=== PATIENT | female | born 1955 | race Hispanic/Latino ===

== ENCOUNTER 2021-02-02 13:03 | Inpatient (IN) | payer MEDICARE ==
[~2021-02-02] VITALS: Ht 157.5 cm; Wt 63.6 kg
[2021-02-02 13:24] LABS: BASOPHILS % (AUTO) 1.1 % (0.0-5.0); EOSINOPHILS % (AUTO) 4.3 % (0.0-8.0); HEMATOCRIT 28.4 % (36-48); MEAN CORPUSCULAR HEMOGLOBIN 28.4 pg (27.0-33.0); MEAN CORPUSCULAR HGB CONC 33.5 g/dL (32.0-36.0); MONOCYTES % (AUTO) 8.2 % (3.0-13.0); NEUTROPHILS % (AUTO) 68.6 % (40.0-77.0); PLATELET COUNT (AUTO) 112 K/uL (130-400); RED BLOOD CELL COUNT(AUTO) 3.34 MIL/uL (4.00-5.50); RED CELL DISTRIBUTION WIDTH 12.8 % (11.0-15.5); WHITE BLOOD COUNT (AUTO) 7.4 K/uL (4.8-10.8)
[2021-02-02 13:32] LABS: INR 1.07 (0.85-1.15); PROTHROMBIN TIME 11.6 SEC (9.6-11.6)
[2021-02-02 13:43] LABS: ALBUMIN 3.5 g/dL (3.5-5.0); BILIRUBIN,TOTAL 0.5 mg/dL (0.2-1.0); CREATININE 1.4 mg/dL (0.5-1.5); TOTAL PROTEIN, SERUM 7.1 g/dL (6.0-8.3)
[2021-02-02 14:09] LABS: POTASSIUM 4.4 mmol/L (3.5-5.1)
[2021-02-02] MEDS ORDERED: PANTOPRAZOLE 40 MG/VIAL IVP SCH (17:00)
[2021-02-02] MEDS ORDERED: ONDANSETRON 4MG INJ IV PRN (17:00)
[2021-02-02] MEDS ORDERED: MAG/ALUM/SIMETH 30 ML UDCUP PO PRN (17:00)
[2021-02-02] MEDS ORDERED: NITROGLYCERIN 0.4 MG SL TAB SL PRN (17:00)
[2021-02-02] MEDS ORDERED: ACETAMINOPHEN 325 MG TAB PO PRN ×2 (17:00)
[2021-02-02 17:32] LABS: HEMOGLOBIN A1C 7.9 % (4.0-6.0)
[2021-02-02] MEDS: 0.9%NACL 1000ML 1,000 ML IV SCH (18:37)
[2021-02-02] MEDS: INSULIN GLARGINE 100 UNITS/ML 10 ML VIAL SQ SCH (21:00)
[2021-02-02] MEDS: INSULIN HUMULIN R 100 UNIT/ML 3ML SQ SCH (21:00)
[2021-02-02 22:55] VITALS: BP 142/71
[2021-02-03] VITALS (11 sets, daily range): BP systolic 128–208; BP diastolic 70–102
[2021-02-03] MEDS: INSULIN HUMULIN R 100 UNIT/ML 3ML SQ SCH ×4 (06:26→21:00)
[2021-02-03 08:23] LABS: HEMATOCRIT 27.4 % (36-48); MEAN CORPUSCULAR HEMOGLOBIN 28.6 pg (27.0-33.0); MEAN CORPUSCULAR HGB CONC 33.9 g/dL (32.0-36.0); MEAN CORPUSCULAR VOLUME 84.3 fL (79-99); RED BLOOD CELL COUNT(AUTO) 3.25 MIL/uL (4.00-5.50); RED CELL DISTRIBUTION WIDTH 12.6 % (11.0-15.5); WHITE BLOOD COUNT (AUTO) 6.9 K/uL (4.8-10.8)
[2021-02-03 08:25] LABS: ALBUMIN 3.2 g/dL (3.5-5.0); BILIRUBIN,TOTAL 0.2 mg/dL (0.2-1.0); CREATININE 1.3 mg/dL (0.5-1.5); POTASSIUM 4.2 mmol/L (3.5-5.1); TOTAL PROTEIN, SERUM 6.4 g/dL (6.0-8.3)
[2021-02-03] MEDS: ENOXAPARIN SODIUM 30 MG/0.3 ML SQ SCH (08:36)
[2021-02-03] MEDS: 0.9%NACL 1000ML 1,000 ML IV SCH ×2 (10:27→21:24)
[2021-02-03 12:58] LABS: CHOLESTEROL 129 mg/dL (<200); HDL CHOLESTEROL 44 mg/dL (35-85); LDL DIRECT 52 mg/dL (0-99); TRIGLYCERIDES 214 mg/dL (30-200)
[2021-02-03] MEDS: INSULIN GLARGINE 100 UNITS/ML 10 ML VIAL SQ SCH (21:28)
[2021-02-03] MEDS: HYDRALAZINE 20MG/ML VIAL IV PRN (22:57)
[2021-02-04] VITALS (8 sets, daily range): BP systolic 90–167; BP diastolic 48–87
[2021-02-04 04:22] LABS: HEMATOCRIT 28.8 % (36-48); MEAN CORPUSCULAR HEMOGLOBIN 28.7 pg (27.0-33.0); MEAN CORPUSCULAR HGB CONC 35.1 g/dL (32.0-36.0); MEAN CORPUSCULAR VOLUME 81.8 fL (79-99); RED BLOOD CELL COUNT(AUTO) 3.52 MIL/uL (4.00-5.50); RED CELL DISTRIBUTION WIDTH 12.5 % (11.0-15.5); WHITE BLOOD COUNT (AUTO) 6.9 K/uL (4.8-10.8)
[2021-02-04 04:59] LABS: ALBUMIN 3.6 g/dL (3.5-5.0); BILIRUBIN,TOTAL 0.5 mg/dL (0.2-1.0); CREATININE 0.8 mg/dL (0.5-1.5); POTASSIUM 3.9 mmol/L (3.5-5.1)
[2021-02-04] MEDS: INSULIN HUMULIN R 100 UNIT/ML 3ML SQ SCH ×4 (06:53→20:28)
[2021-02-04] MEDS: PINDOLOL 5 MG TAB PO SCH ×2 (10:26→20:27)
[2021-02-04] MEDS: ENOXAPARIN SODIUM 30 MG/0.3 ML SQ SCH (10:27)
[2021-02-04] MEDS: 0.9%NACL 1000ML 1,000 ML IV SCH ×2 (16:27→22:05)
[2021-02-04 19:46] LABS: APPEARANCE,URINE Clear (CLEAR); BILIRUBIN,URINE Negative (NEGATIVE); COLOR,URINE Yellow (YELLOW); GLUCOSE, URINE (UA) >=1000 mg/dL (NEGATIVE); KETONES,URINE Negative (NEGATIVE); LEUKOCYTE ESTERASE ,URINE Small (NEGATIVE); NITRATE,URINE Negative (NEGATIVE); OCCULT BLOOD,URINE Negative (NEGATIVE); PH,URINE 5.5 (5.0-8.0); PROTEIN,URINE POS 1+ mg/dL (NEGATIVE); UROBILINOGEN,URINE 0.2 mg/dL (0.2-1.0)
[2021-02-04 20:06] LABS: BACTERIA,URINE Few /HPF (None Seen); MUCUS,URINE Few LPF (None Seen); SQUAMOUS EPITHELIAL CELL,UR Few /HPF (0-2)
[2021-02-04] MEDS: INSULIN GLARGINE 100 UNITS/ML 10 ML VIAL SQ SCH (20:30)
[2021-02-05] VITALS (7 sets, daily range): BP systolic 80–179; BP diastolic 44–82
[2021-02-05] MEDS: HYDRALAZINE 20MG/ML VIAL IV PRN (03:59)
[2021-02-05] MEDS: INSULIN HUMULIN R 100 UNIT/ML 3ML SQ SCH ×3 (06:47→15:57)
[2021-02-05 07:01] LABS: BASOPHILS % (AUTO) 0.5 % (0.0-5.0); EOSINOPHILS % (AUTO) 2.1 % (0.0-8.0); HEMATOCRIT 27.3 % (36-48); LYMPHOCYTES % (AUTO) 16.1 % (21.0-51.0); MEAN CORPUSCULAR HEMOGLOBIN 28.7 pg (27.0-33.0); MEAN CORPUSCULAR HGB CONC 34.4 g/dL (32.0-36.0); MEAN CORPUSCULAR VOLUME 83.2 fL (79-99); MONOCYTES % (AUTO) 10.1 % (3.0-13.0); NEUTROPHILS % (AUTO) 70.7 % (40.0-77.0); PLATELET COUNT (AUTO) 111 K/uL (130-400); RED BLOOD CELL COUNT(AUTO) 3.28 MIL/uL (4.00-5.50); RED CELL DISTRIBUTION WIDTH 12.5 % (11.0-15.5); WHITE BLOOD COUNT (AUTO) 6.7 K/uL (4.8-10.8)
[2021-02-05 07:52] LABS: CREATININE 0.7 mg/dL (0.5-1.5); MAGNESIUM 1.7 mg/dL (1.80-2.40); POTASSIUM 3.5 mmol/L (3.5-5.1)
[2021-02-05] MEDS: PINDOLOL 5 MG TAB PO SCH (08:47)
[2021-02-05] MEDS: ENOXAPARIN SODIUM 30 MG/0.3 ML SQ SCH (08:48)
[2021-02-05] MEDS: 0.9%NACL 1000ML 1,000 ML IV SCH (08:48)
[2021-02-05] MEDS ORDERED: MAGNESIUM 2GM PREMIX 50ML 50 ML IV SCH (10:30)
[2021-02-05] MEDS ORDERED: MIDODRINE HCL 5 MG TABLET ONE (10:45)
[2021-02-05] MEDS ORDERED: GADOTERATE MEGLUMINE 10 MMOL/20 ML VIAL IV ONE (11:00)
[2021-02-05] MEDS ORDERED: LOSA50TA64 PO (11:15)
[2021-02-05] MEDS ORDERED: MEGE40TA22 PO (11:15)
[2021-02-05] MEDS ORDERED: DAPA10TA PO (11:15)
[2021-02-05] MEDS ORDERED: OMEP20CA12 PO (11:15)
[2021-02-05] MEDS ORDERED: METO50TA18 PO (11:15)
[2021-02-05] MEDS ORDERED: METO5 PO (11:15)
[2021-02-05] MEDS ORDERED: ATOR40TA69 PO (11:15)
[2021-02-05] MEDS ORDERED: ASPI-1443 PO (11:15)
[2021-02-05] MEDS ORDERED: GABA-529 PO (11:15)
[2021-02-05] MEDS ORDERED: METF-446 PO (11:15)
[2021-02-05] MEDS ORDERED: PIOG45TA64 PO (11:15)
[2021-02-05] MEDS ORDERED: MIDODRINE HCL 5 MG TABLET PO SCH (14:00)
[2021-02-05] MEDS ORDERED: GABAPENTIN 300 MG CAPSULE PO SCH (14:00)
[2021-02-05] MEDS ORDERED: METOCLOPRAMIDE 5 MG TABLET PO SCH (17:00)
[2021-02-05] MEDS ORDERED: METFORMIN HCL 500 MG TABLET PO SCH (17:00)
[2021-02-05] MEDS ORDERED: PIND5 PO (19:14)
[2021-02-05] MEDS ORDERED: Midodrine Hcl PO (19:14)
[2021-02-05] MEDS ORDERED: ATORVASTATIN 40 MG TABLET PO SCH (21:00)
[2021-02-06] MEDS ORDERED: MEGESTROL 400 MG/10 ML UDCUP PO SCH (09:00)
[2021-02-06] MEDS ORDERED: ASPIRIN 81 MG EC TAB PO SCH (09:00)
== END 2021-02-05 21:54 | disposition home or self-care (01) | DRG 314 ==
LOC: EDH 13:03 → EDHIP 16:50 → OBSVTOIN 16:50 → 4BH 23:26
PROVIDERS: ADMIT Internal Medicine; ATTEND Internal Medicine
DX: I95.9 Hypotension, unspecified (principal); G93.41 Metabolic encephalopathy; G31.9 Degenerative disease of nervous system, unspecified; G90.8 Other disorders of autonomic nervous system; I10 Essential (primary) hypertension; K21.9 Gastro-esophageal reflux disease without esophagitis; Z20.822 Contact with and (suspected) exposure to COVID-19; E78.5 Hyperlipidemia, unspecified; E11.42 Type 2 diabetes mellitus with diabetic polyneuropathy; D64.9 Anemia, unspecified; G90.9 Disorder of the autonomic nervous system, unspecified; J34.2 Deviated nasal septum; G20 Parkinson's disease; F02.80 Dementia in other diseases classified elsewhere, unspecified severity, without behavioral disturbance, psychotic disturbance, mood disturbance, and anxiety; Z90.49 Acquired absence of other specified parts of digestive tract; Z91.19 Patient's noncompliance with other medical treatment and regimen; Z82.49 Family history of ischemic heart disease and other diseases of the circulatory system
CPT/HCPCS: 36415; 70450; 70553; 72125; 80048; 80053; 80061; 81001; 82550; 82607; 82746; 82948; 83036; 83735; 83874; 83880; 84145; 84484; 85025; 85027; 85610; 86140; 87635; 93005; 93306; 97039; C9113; G0378; J0360; J1650; J1815; J3475; J7030